=== PATIENT | female | born 1990 | race Caucasian/White ===

== ENCOUNTER 2018-12-09 12:52 | Outpatient (CLI) | payer BC ==
--- NOTE | 2018-12-09 13:41 | ULT ---
RIGHT BREAST ULTRASOUND: History: Diffuse bilateral breast pain. Palpable mass at the 12 o'clock position of the right breast. Technique: Multiplanar grayscale and color doppler images were obtained in a right breast ultrasound. FINDINGS: No cysts are identified. No shadowing or solid mass is seen. IMPRESSION: BIRADS category 1 - negative. Annual screening mammography is recommended at the age of 40. POS: [facility]
--- NOTE | 2018-12-09 13:46 | ULT ---
LEFT BREAST ULTRASOUND: History: Diffuse bilateral breast pain. Palpable mass at 12 o'clock position of the left breast. Technique: Multiplanar grayscale and color doppler images were obtained in a left breast ultrasound. FINDINGS: There is an incidentally seen anechoic cyst at the 11 o'clock position of the left breast measuring 6 mm in greatest dimension. No solid mass or suspicious shadowing is seen. IMPRESSION: BIRADS category 2 - benign findings. Annual screening mammography is recommend at the age of 40. POS: [facility]
== END 2018-12-09 12:53 | disposition home or self-care (01) ==
LOC: BICULT 12:52
PROVIDERS: ATTEND Obstetrics & Gynecology
DX: N60.19 Diffuse cystic mastopathy of unspecified breast (principal)